=== PATIENT | female | born 1960 ===

== ENCOUNTER → 2023-06-26 14:46 | Outpatient (BNVA) | payer MEDICARE, MEDICAID, SELFPAY | PROVIDERS: PCP Internal Medicine; Referring Provider Internal Medicine; Visit Provider Student in an Organized Health Care Education/Training Program | DX: J44.9 Chronic obstructive pulmonary disease, unspecified (principal); J32.9 Chronic sinusitis, unspecified; J96.91 Respiratory failure, unspecified with hypoxia | CPT/HCPCS: 99214 ==

== ENCOUNTER → 2023-11-07 12:55 | Outpatient (BNVA) | payer MEDICARE, MEDICAID, SELFPAY | PROVIDERS: PCP Internal Medicine; Referring Provider Physician Assistant Medical; Visit Provider Psychiatry & Neurology Neurology | DX: M54.32 Sciatica, left side (principal); R25.2 Cramp and spasm; M54.50 Low back pain, unspecified | CPT/HCPCS: 95885; 95908; 99215; G2212 ==